=== PATIENT | female | born 1965 | race Caucasian/White ===

== ENCOUNTER 2020-09-02 14:28 | Outpatient (CLI) | payer OTHER, SELFPAY ==
--- NOTE | ~2020-09-02 | MM_ITS ---
EXAMINATION: MM screening [facility] BI w kashif HISTORY: Screening mammogram TECHNIQUE: Craniocaudal and mediolateral oblique 3-D tomosynthesis images were obtained and synthetic 2-D images were generated. CAD analysis was submitted and interpreted. COMPARISON: 07/26/2017, 05/06/2016, 07/04/2011 BREAST PARENCHYMAL COMPOSITION: The breasts are almost entirely fatty. FINDINGS: There is no evidence of suspicious mass, calcification, or architectural distortion to sugg est malignancy in either breast. There has been no suspicious interval change. IMPRESSION: 1. No mammographic evidence of malignancy. 2. Recommend routine screening mammography in one year. BI-RADS Category 1: Negative Reviewed, dictated and finalized at location A.
== END 2020-09-02 14:29 | disposition home or self-care (01) ==
LOC: CHSIMG 14:32
PROVIDERS: PCP Internal Medicine; Visit Provider Internal Medicine
DX: Z12.31 Encounter for screening mammogram for malignant neoplasm of breast (principal)
CPT/HCPCS: 77063; 77067

== ENCOUNTER 2021-10-13 17:12 | Outpatient (CLI) | payer OTHER, SELFPAY ==
--- NOTE | ~2021-10-13 | XR_ITS ---
EXAM: XR ankle LT min 3V DATE: 10/13/2021 17:56 HISTORY: F/U Left ankle fracture 2wks ago . COMPARISON: None available. FINDINGS: Normal mineralization. Old medial malleolar avulsion fracture fragment. No acute fracture or dislocation. No lytic or blastic lesion. Scattered degenerative changes. Plantar and Achilles enth esopathy. No erosion or periosteal change. Soft tissues within normal limits. IMPRESSION: No acute or subacute osseous finding detected in the left ankle, comparison to outside st udies would be helpful if available. Reviewed, dictated and finalized at location K. IMPRESSION: No acute or subacute osseous finding detected in the left ankle, co mparison to outside studies would be helpful if available.
== END 2021-10-13 17:13 | disposition home or self-care (01) ==
LOC: CHSIMG 17:14
PROVIDERS: PCP Internal Medicine; Visit Provider Nurse Practitioner Family
DX: S82.892D Other fracture of left lower leg, subsequent encounter for closed fracture with routine healing (principal)
CPT/HCPCS: 73610

== ENCOUNTER 2022-05-12 07:17 | Outpatient (CLI) | payer OTHER, SELFPAY ==
--- NOTE | ~2022-05-12 | MM_ITS ---
EXAMINATION: MM screening [facility] BI w kashif HISTORY: Screening mammogram TECHNIQUE: Craniocaudal and mediolateral oblique 3-D tomosynthesis images were obtained and synthetic 2-D images were generated. CAD analysis was submitted and interpreted. COMPARISON: 09/02/2020, 07/26/2017, 05/06/2016 BREAST PARENCHYMAL COMPOSITION: There are scattered areas of fibroglandular density. FINDINGS: No suspicious mass, calcification, or architectural distortion are identified in either abdiel ast to suggest malignancy. There has been no suspicious interval change. IMPRESSION: 1. No mammographic evidence of malignancy. 2. Recommend routine screening mammography in one year. BI-RADS Category 1: Negative Reviewed, dictated and finalized at location A. T TESTER
== END 2022-05-12 07:18 | disposition home or self-care (01) ==
LOC: CHSIMG 07:19
PROVIDERS: PCP Internal Medicine; Visit Provider Internal Medicine
DX: Z12.31 Encounter for screening mammogram for malignant neoplasm of breast (principal)
CPT/HCPCS: 77063; 77067

== ENCOUNTER → 2022-09-10 10:47 | Outpatient (CLI) | payer OTHER, SELFPAY ==
--- NOTE | ~2022-09-10 | US_ITS ---
EXAMINATION: US carotid duplex BI DATE: 09/10/2022 11:24 INDICATION: Carotid bruit. TECHNIQUE: Grayscale, color Doppler, and pulsed Doppler images of the cervical carotid arteries were obtained. The degree of vessel stenosis is placed in one of the following categories: normal, <50%, 5 0-69%, >=70% but less than near-occlusion, near-occlusion, or total occlusion. Note that percent sten osis relative to normal distal artery lumen diameter is indirectly measured from velocity measurement s as described by Nam, et al. Radiology 2003; 229:340-346. COMPARISON: None. FINDINGS: RIGHT: The right common carotid artery (CCA) peak systolic velocity (PSV) is 81 cm/s. The right internal car otid artery (ICA) PSV is 89 cm/s. The right ICA end-diastolic velocity (EDV) is 32 cm/s. The right IC A/CCA PSV ratio is 0.8. Grayscale and color Doppler images yield an estimate of <50% diameter reducti on from plaque in the ICA. There is antegrade flow in the right vertebral artery. LEFT: The left CCA PSV is 91 cm/s. The left ICA PSV is 71 cm/s. The left ICA EDV is 24 cm/s. The left ICA/C CA PSV ratio is 1.4. Grayscale and color Doppler images yield an estimate of <50% diameter reduction from plaque in the ICA. There is antegrade flow in the left vertebral artery. IMPRESSION: 1. <50% stenosis in the right internal carotid artery. 2. <50% stenosis in the left internal carotid artery. Reviewed, dictated and finalized at location A.
== END ==
PROVIDERS: PCP Internal Medicine; Visit Provider Internal Medicine
DX: R09.89 Other specified symptoms and signs involving the circulatory and respiratory systems (principal); I65.23 Occlusion and stenosis of bilateral carotid arteries
CPT/HCPCS: 93880

== ENCOUNTER 2023-05-18 12:16 | Outpatient (CLI) | payer OTHER, SELFPAY ==
--- NOTE | ~2023-05-18 | MM_ITS ---
EXAMINATION: MM screening [facility] BI w kashif HISTORY: Screening mammogram TECHNIQUE: Craniocaudal and mediolateral oblique 3-D tomosynthesis images were obtained and synthetic 2-D images were generated. CAD analysis was submitted and interpreted. COMPARISON: 05/12/2022, 09/02/2020, 07/26/2017 BREAST PARENCHYMAL COMPOSITION: The breasts are almost entirely fatty. FINDINGS: No suspicious mass, calcification, or architectural distortion are identified in either abdiel ast to suggest malignancy. There has been no suspicious interval change. IMPRESSION: 1. No mammographic evidence of malignancy. 2. Recommend routine screening mammography in one year. BI-RADS Category 1: Negative Reviewed, dictated and finalized at location A. ER OPERATOR
== END 2023-05-18 12:17 | disposition home or self-care (01) ==
LOC: CHSIMG 12:17
PROVIDERS: PCP Internal Medicine; Visit Provider Internal Medicine
DX: Z12.31 Encounter for screening mammogram for malignant neoplasm of breast (principal)
CPT/HCPCS: 77063; 77067

== ENCOUNTER 2023-08-05 11:25 | Outpatient (CLI) | payer OTHER, SELFPAY ==
--- NOTE | ~2023-08-05 | MR_ITS ---
EXAMINATION: MR cervical spine wo con DATE: 08/05/2023 12:29 INDICATION: Cervical radiculopathy with muscle weakness. TECHNIQUE: Magnetic resonance imaging (MRI) of the cervical spine was performed without intravenous c ontrast. COMPARISON: None FINDINGS: There is 8 degrees dextrocurvature of cervicothoracic spine. Vertebral body heights are nor mal. There is moderately decreased disc height from C3-C4 through C6-C7. The spinal cord signal inten sity is normal. The following disc levels are specifically discussed: C2-C3: The disc does not extend beyond the endplate margin. There is no uncovertebral joint osteoarth ritis. There is severe bilateral facet joint osteoarthritis. There is no neural foraminal stenosis. T here is no central canal stenosis. C3-C4: The disc is bulging. There is severe bilateral uncovertebral joint osteoarthritis. There is mi ld right and moderate left facet joint osteoarthritis. There is moderate neural foraminal stenosis. T here is mild central canal stenosis. C4-C5: The disc is bulging. There is severe bilateral uncovertebral joint osteoarthritis. There is mi ld bilateral facet joint osteoarthritis. There is moderate bilateral neural foraminal stenosis. There is mild central canal stenosis. C5-C6: The disc is bulging. There is mild right and severe left uncovertebral joint osteoarthritis. T here is moderate right and mild left facet joint osteoarthritis. There is mild bilateral neural jessica inal stenosis. There is mild central canal stenosis. C6-C7: This is bulging. There is mild right and severe left uncovertebral joint osteoarthritis. There is mild right and moderate left facet joint osteoarthritis. There is mild bilateral neural foraminal stenosis. There is mild central canal stenosis. C7-T1: The disc does not extend beyond the endplate margin. There is no uncovertebral joint osteoarth ritis. There is severe bilateral facet joint osteoarthritis. There is mild bilateral neural foraminal stenosis. There is no central canal stenosis. IMPRESSION: 1. Moderate cervical spondylosis. Reviewed, dictated and finalized at location E.
== END 2023-08-05 11:26 ==
PROVIDERS: PCP Internal Medicine; Visit Provider Internal Medicine
DX: M43.02 Spondylolysis, cervical region (principal)
CPT/HCPCS: 72141

== ENCOUNTER 2023-08-24 16:57 | Outpatient (RCR) | payer OTHER, SELFPAY ==
--- NOTE | 2023-08-24 18:22 | PTOPEVAL1 ---
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 She has had an on and off history of neck and upper back pain. Recently she has had a flare up that does not want to calm down so she went to her doctor. She had a MRI that showed cervical spondylosis and bulging discs. She is having numbness around the right shoulder blade as well as pain in the same area that radiates down into her bicep and tricep. She is not sleeping well because of the pain and has difficulty typing. She started taking Gabapentin on 08/18/23 and has not noticed much change since starting this. She has tried self massage on bicep and tricep and stretch her wrist and neck which does help short term. She also has used a TENS unit and heat to help with pain. Pain is located along the right inner shoulder blade and down to the bicep/tricep of the right arm. She also notes constant stiffness in her neck. She is hoping to learn some techniques she can do on her own to help her symptoms because she has a high co-pay. Reported Pain Level Pain Score 8,0: Self Report Assessment PT Clinical Summary Luisa Cosme presents with cervical, right upper thoracic, and right shoulder pain that has been chronic and intermittent. The most recent flare up is not wanting to go away and she went to the doctor. MRI revealed she has multiple cervical disc bulges and spondylosis. 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 She also has difficulty with sleeping and driving. She objectively demonstrates signs of cervical radiculopathy, poor posture, tension and pain in the upper thoracic and cervical musculature, weakness in the right shoulder and elbow, signs of right shoulder impingement and rotator cuff tendonitis, and decreased functional abilities. She will benefit from skilled PT to address these limitations. Plan of Care Interventions Electrical Stimulation,Hot Pack/Cold Pack,Manual Therapy,Neuro Re-education,Patient/Caregiver Educati,Therapeutic Activities,Therapeutic Exercise PT Services Indicated Ye
--- NOTE | 2023-08-24 18:23 | OPREHPOC ---
Outpatient Therapy Plan of Care This is a Multidisciplinary Plan of Care that may contain components documented by all disciplines (PT, OT, and ST.) PT Problem 1 PT Problem #1 Knowledge Deficit PT Goal 1 Goal Pt will be I in a HEP. Target Visit 4 PT Problem 2 PT Problem #2 Pain PT Goal 1 Goal 1. Pt will report no greater than 3/10 pain with daily activities. 2. Pt will be independent with use of a home traction unit for correction pain relief. Target Visit 4 PT Problem 3 PT Problem #3 Impaired Range of Motion PT Goal 1 Goal Pt will demonstrate 160 degrees of shoulder flexion to improve reaching ability. Pt will demonstrate cervical lateral flexion of 25 degrees bilaterally. Target Visit 4 PT Problem 4 PT Problem #4 Impaired Functional Mobil PT Goal 1 Goal 1. Pt will demonstrate less than 30% self perceived disability per the Quick DASH. 2. Pt will report the ability to work a full 8 hours at her desk with less than 2/10 pain. Target Visit 4 PT Problem 5 PT Problem #5 Impaired Strength PT Goal 1 Goal Pt will demonstrate 4+/5 right shoulder and bicep strength to improve lifting and carrying ability for ADLs. Target Visit 4
--- NOTE | 2023-12-20 10:25 | PCPTNOTE ---
Pt attended 3 skilled PT visits and then did not return. She is discharged. -Minnie Ralph, PT
== END 2023-09-14 23:59 | disposition home or self-care (01) ==
LOC: CHSPT 16:57
PROVIDERS: Visit Provider Internal Medicine
DX: M25.511 Pain in right shoulder (principal); M25.611 Stiffness of right shoulder, not elsewhere classified; M54.12 Radiculopathy, cervical region
CPT/HCPCS: 97012; 97110; 97140; 97150; 97161

== ENCOUNTER 2024-06-07 12:25 | Outpatient (CLI) | payer OTHER, SELFPAY ==
--- NOTE | ~2024-06-07 | MM_ITS ---
EXAMINATION: MM screening [facility] BI w kashif HISTORY: Screening TECHNIQUE: Craniocaudal and mediolateral oblique 3-D tomosynthesis images were obtained and synthetic 2-D images were generated. CAD analysis was submitted and interpreted. COMPARISON: Comparison to multiple prior studies sequentially, with oldest reviewed study dated 05/06. BREAST PARENCHYMAL COMPOSITION: Not Dense: The breasts are almost entirely fatty. FINDINGS: There is no evidence of suspicious mass, calcification, or architectural distortion to sugg est malignancy in either breast. There has been no suspicious interval change. IMPRESSION: 1. No mammographic evidence of malignancy. 2. Recommend routine screening mammography in one year. BI-RADS Category 1: Negative Reviewed, dictated and finalized at location B. PET TEACHER
--- OUTSIDE RECORDS SUMMARY | 2024-06-07 12:30 | XMS_ITS | Clinical Summary ---
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 Gender Identity Not on file Sexual Orientation Not on file Plan of Treatment Health Maintenance Due Date Last Done Comments Cervical Cancer Screening Pa p Smear (Age 30 to 64) Every 3 Years 1967 Colorectal Cancer Screening Colonoscopy (10 Years) 1967 Annual Physical 07/03/1970 Hepatitis C 07/03/1985 DTaP, Tdap and Td Vaccines ( 1 - Tdap) 07/03/1986 Hepatitis B Vaccines (1 of 3 - 19+ 3-dose series) 07/03/1986 Cervical Cancer Screening Pa p with HPV Testing (Age 30 to 64) Every 5 Years 07/03/1997 Cervical Cancer Screening with HPV 07/03/1997 Mammogram Screening 2007 Zoster Vaccines (1 of 2) 07/03/2017 COVID-19 Vaccine (2023-2 5 season) 2023 Influenza Adult (#1) 2024 Meningococcal B Vaccine Aged Out No l onger eligible based on patient's age to complete this topic Meningococcal Vaccine Aged Out No darrian comfort eligible based on patient's age to complete this topic Pneumococcal Vaccine: Pediat rics (0 to 5 Years) and At-Risk Patients (6 to 64 Years) Aged Out No longer eligible b ased on patient's age to complete this topic RSV Immunizations Under 20 Months Aged Out No longer eligible based on patient's age to complete this topic
--- OUTSIDE RECORDS SUMMARY | 2024-06-07 12:30 | XMS_ITS | Data Portability ---
Author Organization [facility], [facility] Address [address] [place] [id number] Assessment Encounter Date Assessment Date Assessment LastModified by Organization Details LastModified Time 10/05/2023 10/05/2023 Etiologies of th e patient's pain were extensively reviewed with the patient today, including a review of pertinent imaging studies and records. Since she has not improved with conservative treatment it is prudent to try a cervical epidural steroid injection with fluoroscopy which I will perform today. I have recommended a CERVICAL epidural steroid injection to reduce the expected inflammatory response in the area. The injection is expected to result in pain reduction and acceleration of functional improvement. After discussion, the patient was scheduled for a fluoroscopically guided CERVICAL EPIDURAL STEROID INJECTION at C6-C7 x 1. Details of the procedure were carefully reviewed, including a non-exhaustive list of expectations, possible risks, side effects, and alternatives. All procedural questions were addressed. There are no known contraindications. Goals to improve the duration of relief, flareups and avoidance of stress on the spine were discussed today. This included staying active with regular core strengthening exercises, proper lifting strategies, appropriate ergonomic and biomechanic strategies. Patient can return as needed and can have these injections every 3 months if needed. [email or web address] Not available 10/05/2023 14:18:41 Plan of Treatment Reminders Order Date Submit Date Provider Last Modified By Organization Details Last Modified Time Details Appointments None record ed. Lab None record ed. Referral None record ed. Procedures None record ed. Surgeries None record ed. Imaging None record ed. Medication Orders None record ed. Patient TargetsNo targets recorded. Patient InstructionsNo instructions recorded. Reason for Referral None Reported. Results Created Date Observation Date Name Description Value Unit Range Abnormal Flag Note LastModifiedBy Organization Detail LastModifiedTime 09/28/19 24 08/05/2023 MRI, cervi alan spine , w/o contr ast No observ ation record ed. [email or web address] [facility] [address], [place], [address], 09/29/2023 07:34:21 Result Notes None recorded. Problems Name Problem SNOMED Code Status Onset Date Resolution Date Notes Provider Name and Address Organization Details Recorded Time Cervical radiculopathy 19523190 Active 2023 Sagar Aguilar MD [address], [place], [address] , [facility] 11:10:17 Cervical spondylosis 476038382 Active 2023 Sagar Aguilar MD [address], [place], [address] , [facility] 11:19:35 Degeneration of cervical intervertebra l disc 55345362 Active 2023 Sagar Aguilar MD [address], [place], [address] , [facility] 11:19:37 Problem Notes None recorded. Procedures Surgical History Date Name Laterality Status Provider Name and Address Organization Details Recorded Time 10/05/19 24 Cervical Epidural Steroid Injection Under Fluoroscopy with Contrast completed Sagar Aguilar MD [address], [place], [address], [facility] 10/05/2023 11:10:11 Imaging Results Imaging Date Name Status LastModified by Organiz ation Details LastModified Time 08/05/2023 MRI, cervical spine, w/o contrast completed [email or web address] [facility] [address], [place], [address], 09/29/2023 07:34:21 Procedure Notes None recorded. Medical Equipment None Reported. Medications Name Sig Start Date Stop Date Status Note LastModified by Organization Details LastModified Time venlafaxine ER 75 mg capsule,exten ded release 24 hr TAKE 1 CAPSULE BY MOUTH ONCE DAILY active Not Available Not Available No t Available amlodipine 5 mg tablet TAKE 1 TABLET BY MOUTH ONCE DAILY active Not Available Not Available No t Available betamethasone valerate 0.1 % topical cream active Not Available Not Available Not Available mupirocin 2 % topical ointment APPLY A SMALL AMOUNT TO THE AFFECTED AREA TOPICALLY THREE TIMES PER DAY active Not Available Not Available No t Available gabapentin 100 mg capsule TAKE 1 CAPSULE BY MOUTH 3 TIMES DAILY. TAKE 2 EXTRA CAPSULES BY MOUTH AT BEDTIME active Not Available Not Available N ot Available ondansetron 4 mg disintegratin g tablet DISSOLVE 1 TABLET IN MOUTH EVERY 6 TO 8 HOURS NEEDED FOR NAUSEA AND VOMITING active Not Available Not Available No t Available irbesartan 300 mg tablet TAKE 1 TABLET BY MOUTH ONCE DAILY active Not Available Not Available No t Available rosuvastatin 5 mg tablet TAKE 1 TABLET BY MOUTH ONCE DAILY active Not Available Not Available No t Available Vitals None Recorded Social History None recorded. Functional Status None recorded. Mental Status None recorded. Family History Nothing Reported. Medical History No medical history recorded. Gynecological HistoryNo gynecological history recorded. Obstetrics History GPAL:G 0 P 0 0 0 0 Past Encounters Encounter ID Performer Location Encounter Start Date Encounter Closed Date Diagnosis/Indication Diagnosis SNOMED-CT Code Diagnosis ICD10 Code Diagnosis Note [id number] Sagar Aguilar MD [facility] [address] [place], [place] [address] [place] [address] 10/05/2023 07:08:36 11/08/2023 10:33:03 Cervical radiculopathy 00112247 M54.12 Degenerati on of cervical intervertebral disc 49655902 M50.30 MRI of the cervical spine from 08-05-2023 shows disc bulging at C3-4 C4-5 C5-6 and C6-7. There is also significan t severe bilateral uncoverteb ral joint osteoarthr itis and bilateral neuroforam inal stenosis at these levels. Cervical spondylosis 387 100728 M47.892 [id number] Sagar Aguilar MD [facility] [address] [place] [address] 10/05/2023 07:09:23 10/05/2023 12:52:44 Cervical radiculopathy 82359189 M54.12 Health Concerns Section Related Observation LastModified by Organization Detai ls LastModified Time None Recorded Concern Status LastModified by Organization Details LastModified Time None Recorded Advance Directives Directive None Recorded Payers Encounter Date Sequence Insurance Name Policy Number Policy Lafleur Covered Member ID Lafleur Member ID Guarantor Name 10/05/2023 [employer] [id number] Luisa Cosme [id number] Luisa Cosme 10/05/2023 [employer] [id number] Luisa Cosme [id number] Luisa Cosme Notes Date Note Type Note Provider Name and Address Organization Details Recorded Time 10/05/2023 text/html Initial history: This is a very pleasant 58-year-old female who presents with chronic neck pain with pain radiating into her right scapula as well as right upper extremity. She has had neck pain for over a year but about 6 months ago she started having pain radiating into her scapula as well as right upper extremity. There was no insinuating event. She rates her pain is anywhere from a 4-8 out of 10 depending on activity. She describes her pain as aching and throbbing in nature. Pain starts in her neck and radiates into her upper arm past the shoulder. Her pain is exacerbated with certain movements. Not much has helped with her pain. She has done physical therapy and gabapentin with some relief however continues with significant pain. Sagar Aguilar MD [address] [address], [place], [address], [facility] 10/05/2023 14:21:25 OBGyn Episode No OBEpisode recorded.
--- OUTSIDE RECORDS SUMMARY | 2024-06-07 12:30 | XMS_ITS | Continuity of Care Document ---
Author Organization [facility] Address [address] [place] [address] Phone Care Team Providers Care Surgery Scheduler Name Role Phone Erasmo David MD Unavailable Unavailable Advance Directives Directive Yes / No Effective Date File Name No Information Encounters Encounter Description Practice Location Reason(s) For Visit Diagnoses Date Provider Providers Copied on Encounter [facility], [address], [place], [place], [id number], [place] tel:[phone] MENDOZA Professional No Information [address] [facility], [facility] [address], [place], [place], [address], [place]. tel:[phone] Family History Family Member Type Diagnosis Age At Onset No Information Payers Payer name Insurance type Covered alliance party ID Authoriza tion(s) No Information Social History Type Description Quantity Date Captured Comments Sex Female Smoking Status No Information Chief Complaint And Reason For Visit No Information Reason For Referral Reason For Referral No Information History Of Present Illness Encounter Date Complaint History Of Prese nt Illness No Information Functional Status Date Functional Assessmen t No Information Instructions Date Instruction Additional Infor mation No Information Assessments Type Assessment Date No Information Patient Care Teams Name Effective Dates (start - stop) Status Members No Information
== END 2024-06-07 12:26 | disposition home or self-care (01) ==
LOC: CHSIMG 12:27
PROVIDERS: PCP Internal Medicine; Visit Provider Internal Medicine
DX: Z12.31 Encounter for screening mammogram for malignant neoplasm of breast (principal)
CPT/HCPCS: 77063; 77067